=== PATIENT | male | born 1965 | race Caucasian/White ===

== ENCOUNTER 2016-08-10 18:56 | Emergency (ER) | payer BC, OTHER ==
[2016-08-10 19:00] VITALS: BP 144/94; PULSE 88; TEMP 98; BMI 25.5
--- NOTE | 2016-08-10 20:36 | PDOC ---
History of Present Illness - General Chief Complaint: Injury Stated Complaint: LAC HAND Time Seen by Provider: 08/10/16 19:56 History Source: Patient Exam Limitations: No Limitations - History of Present Illness Initial Comments: 08/10/16 20:29 50 year old male with medical history of high cholesterol and umbilical hernia repair, 02/2016 presents with injury by tamanna nail while taking sheetrock down in home. States unknown tetanus status, would like tetanus vaccine. Timing/Duration: 1-3 hours Severity: mild Modifying Factors: improves with: other (no intervention) Associated Symptoms: reports: denies symptoms Aspirin Received prior to arrival: Yes: no aspirin today Beta Tito Contraindications(Core Measure): Yes: Not Prescribed Beta Tito Given by EMS(Core Measure): No Beta Tito Taken at Home(Core Measure): No Beta Tito Not Indicated at this Time(Core Measure): No Past History - Travel Traveled outside of the country in the last 30 days: No Close contact w/someone who was outside of country & ill: No - Past Medical History Allergies/Adverse Reactions: Allergies Allergy/AdvReac Type Severity Reaction Status Date / Time No Known Drug Allergies Allergy Verified 08/10/16 19:00 Home Medications: Ambulatory Orders Simvastatin 10 mg PO HS 12/21/15 Oxycodone HCl/Acetaminophen [Percocet 5-325 mg Tablet] 1 tab PO Q4H PRN #42 tablet MDD 6 03/12/16 Anemia: No Asthma: No Cancer: No Cardiac Disorders: No CVA: No COPD: No CHF: No Dementia: No Diabetes: No GI Disorders: No Disorders: No HTN: No Hypercholesterolemia: Yes Liver Disease: No Seizures: No Thyroid Disease: No - Surgical History Abdominal Surgery: No Appendectomy: Yes (1981) Cardiac Surgery: No Cholecystectomy: No Lung Surgery: No Neurologic Surgery: No Orthopedic Surgery: Yes (RIGHT KNEE ARTHROSCOPY 2000) - Psycho/Social/Smoking Cessation Hx Anxiety: No Suicidal Ideation: No Smoking Status: No Smoking History: Never smoked Have you smoked in the past 12 months: No Number of Cigarettes Smoked Daily: 0 Information on smoking cessation initiated: No Hx Alcohol Use: Yes (OCCAS WINE) Drug/Substance Use Hx: No Substance Use Type: Alcohol Hx Substance Use Treatment: No Review of Systems - Review of Systems Able to Perform ROS?: Yes Is the patient limited Greenlandic proficient: No Constitutional: No: Chills, Diaphoresis, Fever, Unexplained wgt Loss HEENTM: No: Ear Discharge, Mouth Swelling Respiratory: No: SOB at Rest Cardiac (ROS): No: Chest Pain ABD/GI: No: See HPI, Blood Streaked Bowels, Constipated : No: Dysuria, Testicular Swelling Musculoskeletal: No: Symptoms Reported Integumentary: Yes: Other (burning at injury site). No: Change in Color *Physical Exam - Vital Signs Last Vital Signs Temp Pulse Resp BP Pulse Ox 98 F 88 18 144/94 97 08/10/16 18:58 08/10/16 18:58 08/10/16 18:58 08/10/16 18:58 08/10/16 18:58 - Physical Exam General Appearance: Yes: Nourished, Appropriately Dressed. No: Apparent Distress HEENT: positive: LIZZETTE, TMs Normal, Pharynx Normal Neck: positive: Supple Respiratory/Chest: positive: Lungs Clear Cardiovascular: positive: Regular Rhythm, Regular Rate, S1, S2 Musculoskeletal: negative: Vertebral Tenderness Integumentary: positive: Other (vertical abrasion noted from wrist up forearm with small amount of redness ) Medical Decision Making - Medical Decision Making 08/10/16 20:33 50 year old male with history of high cholesterol and hernia repair with abrasion to forearm boostrix given and wound care instructions *DC/Admit/Observation/Transfer Diagnosis at time of Disposition: Abrasion forearm Qualifiers: Encounter type: initial encounter Laterality: left Qualified Code(s): S50.812A - Abrasion of left forearm, initial encounter - Discharge Dispostion Disposition: HOME Condition at time of disposition: Good Admit: No - Patient Instructions Printed Discharge Instructions: DI for Abrasion, Tetanus, Diphtheria, Pertussis (Tdap) Vaccine Additional Instructions: Keep area clean and dry. Return for redness, pain, fever or drainage from wound - Post Discharge Activity Work/School Note: Back to Work
[2016-08-10] MEDS ORDERED: DIPHTH,PERTUSS(ACELL),TET 0.5 ML DISP.SYRIN IM ONE (22:05)
== END 2016-08-10 20:45 | disposition home or self-care (01) ==
LOC: JERFT 18:56
PROC: 3E0234Z Introduction of Serum, Toxoid and Vaccine into Muscle, Percutaneous Approach (ICD-10-PCS; principal; 2016-08-10)
DX: S50.812A Abrasion of left forearm, initial encounter (principal); W45.0XXA Nail entering through skin, initial encounter; Y93.89 Activity, other specified; Y92.018 Other place in single-family (private) house as the place of occurrence of the external cause; Y99.8 Other external cause status
CPT/HCPCS: 90715; 99281-25

== ENCOUNTER 2017-09-01 08:42 | Emergency (ER) | payer BC, OTHER ==
--- NOTE | 2017-09-01 08:56 | PDOC ---
History of Present Illness - General Chief Complaint: Sore Throat Stated Complaint: SORE THROAT Time Seen by Provider: 09/01/17 08:43 - History of Present Illness Initial Comments: 09/01/17 09:04 51yo male with a pmhx of HTN and HLD presents to the ED c/o cough- productive yellow sputum. Also, c/o n/v/d, body aches, fevers at home. Has been taking dayquil. Pt states diarrhea after every meal. States up coughing at night. Subjective fevers at home. +sick contacts at work. Pt did not get the flu shot this year. Pt c/o nausea. No cp/sob. No ear pain. No rhinorrhea. C/o sore throat. No rash. No abd pain. No dysuria. No urinary complaints. No other complaints. PMHx: HTN, HLD PSHx: Denies All: denies Social hx: quit smoking 15yrs ago, denies drugs, denies etoh Meds: Lisinopril, simvastatin 09/01/17 09:12 Past History - Past Medical History Allergies/Adverse Reactions: Allergies Allergy/AdvReac Type Severity Reaction Status Date / Time No Known Drug Allergies Allergy Verified 09/01/17 08:42 Home Medications: Ambulatory Orders Simvastatin 10 mg PO HS 12/21/15 Lisinopril 20 mg PO DAILY 09/01/17 Oseltamivir Phosphate [Tamiflu] 75 mg PO BID #10 capsule 09/01/17 Anemia: No Asthma: No Cancer: No Cardiac Disorders: No CVA: No COPD: No CHF: No Dementia: No Diabetes: No GI Disorders: No Disorders: No HTN: Yes Hypercholesterolemia: Yes Liver Disease: No Seizures: No Thyroid Disease: No - Surgical History Abdominal Surgery: No Appendectomy: Yes (1981) Cardiac Surgery: No Cholecystectomy: No Lung Surgery: No Neurologic Surgery: No Orthopedic Surgery: Yes (RIGHT KNEE ARTHROSCOPY 2000) - Suicide/Smoking/Psychosocial Hx Smoking Status: No Smoking History: Never smoked Have you smoked in the past 12 months: No Number of Cigarettes Smoked Daily: 0 Information on smoking cessation initiated: No Hx Alcohol Use: No Drug/Substance Use Hx: No Substance Use Type: Alcohol Hx Substance Use Treatment: No Review of Systems - Review of Systems Able to Perform ROS?: Yes Is the patient limited Austrian proficient: No Constitutional: Yes: Fever. No: Chills HEENTM: Yes: Throat Pain. No: Nose Pain, Nose Congestion Respiratory: Yes: Cough, Productive cough. No: Shortness of Breath, Wheezing Cardiac (ROS): No: Chest Pain, Palpitations ABD/GI: Yes: Diarrhea, Nausea, Vomiting : No: Burning, Dysuria Musculoskeletal: No: Back Pain Integumentary: No: Rash Neurological: No: Headache, Numbness, Tingling All Other Systems: Reviewed and Negative *Physical Exam - Vital Signs Last Vital Signs Temp Pulse Resp BP Pulse Ox 98.5 F 57 L 18 137/94 96 09/01/17 08:42 09/01/17 08:42 09/01/17 08:42 09/01/17 08:42 09/01/17 08:42 - Physical Exam General Appearance: Yes: Nourished, Appropriately Dressed. No: Apparent Distress HEENT: positive: EOMI, LIZZETTE, TMs Normal, Pharynx Normal. negative: Nasal Congestion, Rhinorrhea Neck: positive: Supple. negative: Lymphadenopathy (R), Lymphadenopathy (L) Respiratory/Chest: positive: Lungs Clear, Normal Breath Sounds. negative: Chest Tender, Respiratory Distress, Accessory Muscle Use Cardiovascular: positive: Regular Rhythm, S1, S2, Bradycardia Gastrointestinal/Abdominal: positive: Normal Bowel Sounds, Soft. negative: Guarding, Rebound, Tenderness Musculoskeletal: positive: Normal Inspection. 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, Fully Oriented, Alert, Motor Strength 5/5, Other (ambulatory with a steady gait) ED Treatment Course - LABORATORY CBC & Chemistry Diagram: 09/01/17 09:23 09/01/17 09:23 Medical Decision Making - Medical Decision Making 09/01/17 09:22 a/p: 51yo male with cough, subjective fevers, n/v -did not receive the flu vaccine -suspect influenza vs flu like illness vs mucopurulent bronchitis vs pna -will check labs, pt requesting strep swab (sick contacts with strep at work), cxr -will give ivf hydration, pepcid, zofran for n/v/d -will monitor and reassess -pt nontoxic in appearance 09/01/17 10:11 re-eval: labs pending, strep and cxr negative pt feeling better nausea resolved will continue to monitor 09/01/17 11:20 pt feeling much better labs reviewed will start tamiflu and d/c to home answered all questions. Pt will follow up with Dr. Mary this week. Discussed all reasons to return to the ED. *DC/Admit/Observation/Transfer Diagnosis at time of Disposition: Influenza-like illness - Discharge Dispostion Disposition: HOME Condition at time of disposition: Stable Admit: No - Prescriptions Prescriptions: Oseltamivir Phosphate [Tamiflu] 75 mg PO BID #10 capsule - Referrals Referrals: Abad Mary MD [Staff Physician] - - Patient Instructions Printed Discharge Instructions: DI for Influenza -- Adult Additional Instructions: Please take all meds as prescribed. Please drink plenty of fluids. Please make a follow up appointment with your PMD for 2-3 days. Please return to the ED with any further complaints. - Post Discharge Activity Forms/Work/School Notes: Back to Work
[2017-09-01 09:08] VITALS: BP 137/94; PULSE 57; TEMP 98.5; BMI 25.0
[2017-09-01] MEDS ORDERED: FAMOTIDINE 20 MG/50 ML IVPB 20 MG/50 ML MG IVPB ONE (09:15)
[2017-09-01] MEDS ORDERED: ONDANSETRON 4 MG/2 ML VIAL IVPUSH ONE (09:15)
[2017-09-01] MEDS ORDERED: SODIUM CHLORIDE 0.9% 1000 ML INFUS.BAG IV ONE (09:15)
[2017-09-01] MEDS ORDERED: ONDANSETRON 4 MG/2 ML VIAL ONE (09:54)
[2017-09-01 10:26] LABS: BASO % 0.4 % (0-2.0); EOS % 1.6 % (0-4.5); HEMATOCRIT 45.7 % (35.4-49); HEMOGLOBIN 16.1 GM/dl (11.7-16.9); LYMPH % 24.5 % (8-40); MCH 33.6 pg (25.7-33.7); MCHC 35.2 g/dl (32.0-35.9); MEAN CELL VOLUME 95.4 fl (80-96); MEAN PLT VOLUME 8.3 fl (7.5-11.1); MONO % 15.5 % (3.8-10.2); PLATELET COUNT 161 K/MM3 (134-434); RBC 4.79 M/mm3 (4.00-5.60); RDW 11.4 % (11.9-15.9); WHITE BLOOD COUNT 4.7 K/mm3 (4.0-10.8)
[2017-09-01] MEDS ORDERED: OSELTAMIVIR PHOSPHATE 75 MG CAPSULE PO ONE (10:54)
[2017-09-01] MEDS ORDERED: OSELTAMIVIR PHOSPHATE 75 MG CAPSULE ONE (11:00)
[2017-09-01 11:06] LABS: ALBUMIN 3.4 g/dl (3.5-5.0); ALK PHOS 58 U/L (32-92); ANION GAP 3 (8-16); BILIRUBIN,TOTAL 0.5 mg/dl (0.2-1.0); BLOOD UREA NITROGEN 13 mg/dl (7-18); CALCIUM 8.1 mg/dl (8.4-10.2); CHLORIDE 105 mmol/L (98-107); CO2 29 mmol/L (22-28); GLUCOSE,RANDOM 100 mg/dl (74-106); POTASSIUM 4.8 mmol/L (3.5-5.1); SGOT/AST 39 U/L (10-42); SGPT/ALT 37 U/L (10-40); SODIUM 137 mmol/L (136-145); TOT PROT 6.1 g/dl (6.4-8.3)
== END 2017-09-01 11:29 | disposition home or self-care (01) ==
LOC: FER 08:42
PROC: 3E033GC Introduction of Other Therapeutic Substance into Peripheral Vein, Percutaneous Approach (ICD-10-PCS; principal; 2017-09-01)
PROC: 3E0337Z Introduction of Electrolytic and Water Balance Substance into Peripheral Vein, Percutaneous Approach (ICD-10-PCS; 2017-09-01)
DX: J11.1 Influenza due to unidentified influenza virus with other respiratory manifestations (principal)
CPT/HCPCS: 36415; 71046-TC-FY; 80053; 85025; 87070; 87430; 99282-25

== ENCOUNTER 2017-12-19 11:57 | Emergency (ER) | payer BC ==
[2017-12-19 12:10] VITALS: BP 124/81; PULSE 77; TEMP 98.6; BMI 24.3
--- NOTE | 2017-12-19 12:52 | PDOC ---
History of Present Illness - General Chief Complaint: Redness To Affected Area Stated Complaint: RT HAND PAIN Time Seen by Provider: 12/19/17 12:32 - History of Present Illness Initial Comments: 52-year-old male presents for evaluation of right thumb pain 1 week. He was changing a break Habel about a week ago cut his thumb and noticed some increased redness and swelling and his pain has since increased. He has dyslipidemia and takes Lipitor no other comorbidities. No ALLERGIES to medication. It's pain is described as achy exacerbated with palpation of the area relieved with rest and with radiation up into the base of the thumb. 12/19/17 12:34 Past History - Past Medical History Allergies/Adverse Reactions: Allergies Allergy/AdvReac Type Severity Reaction Status Date / Time No Known Drug Allergies Allergy Verified 12/19/17 12:09 Home Medications: Ambulatory Orders Simvastatin 10 mg PO HS 12/21/15 Lisinopril 20 mg PO DAILY 09/01/17 Oseltamivir Phosphate [Tamiflu] 75 mg PO BID #10 capsule 09/01/17 Cephalexin [Keflex] 500 mg PO QID #40 capsule 12/19/17 Sulfamethoxazole/Trimethoprim [Bactrim Ds -] 1 tab PO BID #14 tablet 12/19/17 Anemia: No Asthma: No Cancer: No Cardiac Disorders: No CVA: No COPD: No CHF: No Dementia: No Diabetes: No GI Disorders: No Disorders: No HTN: Yes Hypercholesterolemia: Yes Liver Disease: No Seizures: No Thyroid Disease: No - Surgical History Abdominal Surgery: No Appendectomy: Yes (1981) Cardiac Surgery: No Cholecystectomy: No Lung Surgery: No Neurologic Surgery: No Orthopedic Surgery: Yes (RIGHT KNEE ARTHROSCOPY 2000) - Suicide/Smoking/Psychosocial Hx Smoking Status: No Smoking History: Never smoked Have you smoked in the past 12 months: No Number of Cigarettes Smoked Daily: 0 Hx Alcohol Use: No Drug/Substance Use Hx: No Substance Use Type: Alcohol Hx Substance Use Treatment: No Review of Systems - Review of Systems Constitutional: No: Chills, Fever Musculoskeletal: Yes: See HPI, Other All Other Systems: Reviewed and Negative *Physical Exam - Vital Signs Last Vital Signs Temp Pulse Resp BP Pulse Ox 98.6 F 77 18 124/81 99 12/19/17 12:07 12/19/17 12:07 12/19/17 12:07 12/19/17 12:07 12/19/17 12:07 - Physical Exam Comments: There is erythema erythema warmth fluctuance and tenderness at the radial border of the proximal nail fold of the right thumb. There is no tenderness with passive stretch of the extensor or flexor tendons. There is no tenderness extending proximally into the thumb hand or wrist. He has full nonpainful passive range of motion of the IPJ of the right thumb MCP of the right thumb as well as the rest. There are no gross sensorimotor deficits. He is neurovascularly intact. 12/19/17 12:35 Procedures - Incision and Drainage I&D Site: Right: Paronychia (thumb) Anesthesia: 1% Lidocaine Volume(ml): 1 Blade Size: 11 Attempts: 1 Complications: none Dressing: Yes Progress: 12/19/17 12:55 Tolerated well. *DC/Admit/Observation/Transfer Diagnosis at time of Disposition: Paronychia of finger of right hand - Discharge Dispostion Disposition: HOME Condition at time of disposition: Stable Decision to Admit order: No - Referrals Referrals: Abad Mary MD [Primary Care Provider] - Christiano Max MD [Staff Physician] - - Patient Instructions Printed Discharge Instructions: Paronychia Additional Instructions: I've placed on 2 antibiotics for the infection and your thumb. I've also sent a culture of the fluid that I've drained. Follow-up with who is a hand surgeon. Return to the emergency room if your symptoms worsen or go unresolved prior to follow-up important to take all the antibiotics as prescribed. Keep the wound covered for 48 hours after 48 hours you may unwrap it wash with soap and water and leave it open to air if there is draining you may place a dry sterile dressing. - Post Discharge Activity
== END 2017-12-19 13:09 | disposition home or self-care (01) ==
LOC: JERFT 11:57
PROC: 0J9J0ZZ Drainage of Right Hand Subcutaneous Tissue and Fascia, Open Approach (ICD-10-PCS; principal; 2017-12-19)
DX: L03.011 Cellulitis of right finger (principal); E78.00 Pure hypercholesterolemia, unspecified
CPT/HCPCS: 87070; 87205; 99281-25

== ENCOUNTER 2018-05-07 08:45 | Day surgery (SDC) | payer BC ==
[2018-05-05 11:37] VITALS: BMI 27.6
[2018-05-07 10:41] VITALS: TEMP 97.6
[2018-05-07 12:16] VITALS: BP 108/69; PULSE 60
--- NOTE | 2018-05-10 17:24 | PATH ---
Surgical Pathology Report Patient Name: BRUEC ELLSWORTH [facility]. Rec. #: [id number] /Age/Gender: 1965 (Age: 52) / M Account: [id number] Location: U-ENDOSCOPY Taken: 05/07/2018 Received: 05/07/2018 Reported: 05/10/2018 Physicians: Calista Parikh M.D. Specimen(s) Received A: RECTAL POLYP B: POLYP SIGMOID Clinical History Adenoma surveillance Postoperative diagnosis: Diverticulosis, colon polyps Final Diagnosis A. RECTUM, POLYP, BIOPSY: POLYPOID COLONIC MUCOSA WITH PROMINENT LYMPHOID AGGREGATE AND SUPERFICIAL HYPERPLASTIC FEATURES. B. SIGMOID COLON, BIOPSY: TUBULAR ADENOMA. Electronically Signed Rachel Rich M.D. Gross Description A. Received in formalin, labeled "polyp rectum" are 2 davis, irregular portions of soft tissue measuring 0.2 and 0.3 cm. in greatest dimension. The specimens are submitted in toto in one cassette. B. Received in formalin, labeled "biopsy polyp sigmoid" are 2 davis, irregular portions of soft tissue averaging 0.3 cm. in greatest dimension. The specimens are submitted in toto in one cassette. DL/05/07/2018 saudi05/07/2018
== END 2018-05-07 12:17 | disposition home or self-care (01) ==
LOC: JASU-ENDO 08:45
PROVIDERS: ATTEND Internal Medicine Gastroenterology
PROC: 0DBN8ZX Excision of Sigmoid Colon, Via Natural or Artificial Opening Endoscopic, Diagnostic (ICD-10-PCS; 2018-05-07)
PROC: 0DBP8ZX Excision of Rectum, Via Natural or Artificial Opening Endoscopic, Diagnostic (ICD-10-PCS; principal; 2018-05-07 10:00)
DX: Z12.11 Encounter for screening for malignant neoplasm of colon (principal); Z86.010 Personal history of colon polyps; K62.1 Rectal polyp; D12.5 Benign neoplasm of sigmoid colon; K57.30 Diverticulosis of large intestine without perforation or abscess without bleeding
CPT/HCPCS: 88305-TC

== ENCOUNTER 2019-02-23 09:28 | Emergency (ER) | payer BC ==
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
[2019-02-23 09:39] VITALS: BP 153/97; PULSE 70; TEMP 98.6; BMI 25.8
== END 2019-02-23 09:44 | disposition home or self-care (01) ==
LOC: FER 09:28
DX: S60.811A Abrasion of right wrist, initial encounter (principal); Y35.891A Legal intervention involving other specified means, law enforcement official injured, initial encounter; Y93.89 Activity, other specified; Y92.410 Unspecified street and highway as the place of occurrence of the external cause; Y99.0 Civilian activity done for income or pay; I10 Essential (primary) hypertension; E78.00 Pure hypercholesterolemia, unspecified
CPT/HCPCS: 99282-25

== ENCOUNTER 2020-09-12 05:02 | Day surgery (SDC) | payer BC ==
[2020-09-11 15:07] VITALS: BMI 28.8
[2020-09-12 11:58] VITALS: TEMP 98
[2020-09-12 12:13] VITALS: PULSE 56
[2020-09-12 15:00] VITALS: BP 128/85
== END 2020-09-12 12:45 | disposition home or self-care (01) ==
LOC: JASU-ENDO 05:02
PROVIDERS: ATTEND Internal Medicine Gastroenterology
PROC: 0DB78ZX Excision of Stomach, Pylorus, Via Natural or Artificial Opening Endoscopic, Diagnostic (ICD-10-PCS; 2020-09-12)
PROC: 0DB28ZX Excision of Middle Esophagus, Via Natural or Artificial Opening Endoscopic, Diagnostic (ICD-10-PCS; 2020-09-12)
PROC: 0DB38ZX Excision of Lower Esophagus, Via Natural or Artificial Opening Endoscopic, Diagnostic (ICD-10-PCS; 2020-09-12)
PROC: 0DB98ZX Excision of Duodenum, Via Natural or Artificial Opening Endoscopic, Diagnostic (ICD-10-PCS; principal; 2020-09-12 11:00)
DX: K21.00 Gastro-esophageal reflux disease with esophagitis, without bleeding (principal); K22.8 Other specified diseases of esophagus; K44.9 Diaphragmatic hernia without obstruction or gangrene; K29.70 Gastritis, unspecified, without bleeding